=== PATIENT | female | born 1955 | race Caucasian/White ===

== ENCOUNTER → 2016-10-15 | Outpatient (CLI) | payer BC ==
[~2016-10-15] MED LIST: ASPI-781 PO; GLUCOSAMINE; IBUPROFEN; OXYC-481 PO; TRAM50TA2 PO
--- NOTE | 2016-10-15 09:52 | RADRPT ---
PROCEDURE: Right knee radiographs. CLINICAL INDICATION: Right knee pain. Postop. TECHNIQUE: Three views. Weight bearing. Frontal, lateral, and patellar view. COMPARISON: 03/05/2016. FINDINGS: There is no fracture or dislocation. There is diffuse osteopenia. There is a total right knee arthroplasty which appears satisfactory. There is no lytic or blastic lesion. There is a small joint effusion. IMPRESSION: 1. Diffuse osteopenia. 2. Small joint effusion. 3. Postoperative changes with arthroplasty of the right knee. RPTAT: QQ .Pérez Finch MD, MD Date Time Electronically viewed and signed by .Pérez Finch MD, MD on 10/15/2016 09:51 .R/
== END | disposition home or self-care (01) ==
LOC: HKI 08:57
PROVIDERS: ATTEND Orthopaedic Surgery
DX: M17.12 Unilateral primary osteoarthritis, left knee (principal); M25.562 Pain in left knee; Z96.651 Presence of right artificial knee joint
CPT/HCPCS: 73562; G0463

== ENCOUNTER → 2017-01-03 | Outpatient (CLI) | payer BC ==
--- NOTE | 2017-01-03 14:33 | RADRPT ---
PROCEDURE: XR LEFT KNEE. CLINICAL INDICATION: Knee pain. TECHNIQUE: Four views of the left knee are available for review including AP weight bearing, later al, PA 45 [place] weight bearing and merchant views. COMPARISON: None available FINDINGS: There is marked medial joint space narrowing and there are peripheral osteophytes and subcortical sc lerosis and lucency indicative of advanced arthrosis. There may be superimposed central weightbeari ng surface subcortical medial femoral condyle osteonecrosis. No collapse is seen but there is mild flattening which may indicate early collapse. Moderate lateral compartment and patellofemoral arthro sis is seen. As a small joint effusion. No evidence for acute fracture. IMPRESSION: 1. 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 2. Moderate arthrosis of the lateral compartment of patellofemoral joint. RPTAT: XX .Toro Gardner MD, MD Date Time Electronically viewed and signed by .Toro Gardner MD, on 01/03/2017 14:32 .T/
--- NOTE | 2017-01-03 14:36 | RADRPT ---
PROCEDURE: CR BONE LENGTH CLINICAL INDICATION: Leg length discrepancy. TECHNIQUE: An AP frontal x-ray was obtained for the purpose of measuring the lower extremity length s. COMPARISON: None. FINDINGS: Right side: Top of the femoral head to central weightbearing surface of the medial femoral condyle: 41.61 cm Top of the femoral head to central weightbearing surface of the lateral femoral condyle: 41.7 cm Left side: Top of the femoral head to central weightbearing surface of the medial femoral condyle: 41.7 cm Top of the femoral head to central weightbearing surface of the lateral femoral condyle: 41.7 cm IMPRESSION: 1. There is essentially no difference in size of the femora bilaterally. 2. There is a discrepancy between the right and left femora medially of 1 mm with the left longer t vick the left. The measurement is felt to be within the margin of error. 2. There is no discrepancy between the right and left femora laterally. RPTAT: XX .Toro Gardner MD, MD Date Time Electronically viewed and signed by .Toro Gardner MD, on 01/03/2017 14:36 .T/
== END | disposition home or self-care (01) ==
LOC: HKI 09:11
PROVIDERS: ATTEND Orthopaedic Surgery
DX: Z47.1 Aftercare following joint replacement surgery (principal); Z96.651 Presence of right artificial knee joint
CPT/HCPCS: 73564; 77073; G0463

== ENCOUNTER 2017-01-06 07:36 | Inpatient (IN) | payer BC ==
[2017-01-06] VITALS (32 sets, daily range): BP systolic 86–162; BP diastolic 62–76; PULSE 60–94; RESP 11–20; Ht 160 cm; Wt 53.7 kg
[~2017-01-06] VITALS: Ht 160 cm; Wt 53.7 kg
[~2017-01-06 07:36] MED LIST changes: +ACETAMINOPHEN 1000 MG/100 ML IVPB ONE; +BUPIVACAINE LIPOSOME/PF 266 MG/20 ML VIAL INFIL SCH; +CEFAZOLIN 2GM/50 ML (PMX) 50 ML X1 BEFORE INCISION IVPB SCH; +CELECOXIB 400 MG PO X1 DOSE PO SCH; +ETOMIDATE 20 MG INJ ONE; +EXPAREL NOTE (BUPIVICAINE LIPOSOMAL) XX SCH; +LACTATED RINGER'S 1,000 ML IV SCH; +ONDANSETRON 4 MG IV X 1 DOSE IV SCH; +PAIN COCKTAIL-CEFUROXIME IRR SCH; +PREGABALIN 300 MG PO X1 PO SCH; +PROPOFOL 1000 MG INJ ONE; +SOD CHLORIDE 0.9% IV SCH; +SOD CHLORIDE 0.9% IVPB SCH; +TRANEXAMIC ACID IV SCH; +TRANEXAMIC ACID IVPB SCH; +oxyCODONE (CR) 10 MG TAB [oxyCONTIN] X1 DOSE PO SCH; +traMADOL 50 MG TAB X 1 DOSE PO SCH
[2017-01-06] MEDS ORDERED: NEOSTIGMINE 3 MG/3 ML SYRINGE ONE (09:19)
[2017-01-06] MEDS ORDERED: CEFAZOLIN 1 GM INJ ONE (09:19)
[2017-01-06] MEDS ORDERED: PROPOFOL 20 ML ONE (09:19)
[2017-01-06] MEDS ORDERED: DEXAMETHASONE 4 MG/ML 1 ML INJ ONE (09:19)
[2017-01-06] MEDS ORDERED: FENTAnyl 50 MCG/ML VIAL ONE (09:19)
[2017-01-06] MEDS ORDERED: ONDANSETRON 4 MG INJ ONE (09:19)
[2017-01-06] MEDS ORDERED: GLYCOPYRROLATE 0.4 MG INJ ONE (09:19)
[2017-01-06] MEDS ORDERED: MIDAZOLAM 1 MG/ML 2 ML INJ ONE (09:19)
[2017-01-06] MEDS ORDERED: ROCURONIUM 50 MG INJ ONE (09:19)
[2017-01-06] MEDS ORDERED: SUGAMMADEX SODIUM 200 MG/2 ML VIAL IV ONE (09:29)
[2017-01-06] MEDS ORDERED: SODIUM CL BACTERIOSTATIC 30 ML INJ ONE (09:46)
[2017-01-06] MEDS ORDERED: VANCOMYCIN 1 GM INJ ONE (09:46)
[2017-01-06] MEDS ORDERED: POLYMYXIN B 500000 UNIT INJ ONE (09:46)
--- NOTE | 2017-01-06 09:52 | HPN ---
Date/Time of Note Date/Time of Note DATE: 01/06/17 TIME: 09:51 Interval H&P Admission Note Pt. seen H&P reviewed: No system changes No changes from H&P on 12/27/16 by GRIFFIN Smiley MD Jan 06, 2017 09:52
[2017-01-06] MEDS ORDERED: BACITRACIN 50000 UNITS INJ ONE (10:21)
[2017-01-06] MEDS: traMADol 50 MG TAB PO SCH ×2 (12:00→18:00)
[2017-01-06] MEDS ORDERED: ASPIRIN (EC) 325 MG TAB PO ONE (12:30)
[2017-01-06] MEDS ORDERED: HYDROCODONE/APAP (7.5/325) TAB PO PRN (12:30)
[2017-01-06] MEDS ORDERED: NACL 0.9% 3 ML SYG IV SCH (12:30)
[2017-01-06] MEDS ORDERED: HYDROmorphONE 1 MG/ML SYG IV PRN (12:30)
[2017-01-06] MEDS ORDERED: NA PHOSPHATE/BIPHOS 133 ML ENEMA PR PRN (12:30)
[2017-01-06] MEDS ORDERED: DIPHENHYDRAMINE 25 MG CAP PO PRN (12:30)
[2017-01-06] MEDS ORDERED: MAGNESIUM HYDROXIDE 30ML CUP PO PRN (12:30)
[2017-01-06] MEDS ORDERED: BISACODYL 10 MG SUPP PR PRN (12:30)
--- NOTE | 2017-01-06 12:35 | OPR ---
Date/Time of Note Date/Time of Note DATE: 01/06/17 TIME: 12:32 Operative Report Procedure Description DATE: 01/06/2017 PREOPERATIVE DIAGNOSIS: Left knee osteoarthritis POSTOPERATIVE DIAGNOSIS: Left knee osteoarthritis OPERATION PERFORMED: Left total knee arthroplasty. SURGEON: Griffin Mccoy MD CARD GRADER: Jonathan Lombardi PA-C COMPONENTS USED: DePuy Attune size 3 narrow femoral component, size 2 tibial baseplate, 6 mm polyethylene insert, 32 patellar button ANESTHESIA: Spinal plus general endotracheal intubation, plus periarticular injection ANESTHESIOLOGIST: Bhaskar Bryant M.D. TOURNIQUET TIME: 49 minutes. ESTIMATED BLOOD LOSS: 50 cc INTRAVENOUS FLUIDS: 1,800 cc SPECIMENS: Bone and soft tissue. DRAINS: Hemovac x1. COMPLICATIONS: None. DISPOSITION: The patient tolerated the procedure well and was taken to the recovery room in stable condition. INDICATIONS: The patient is a 61-year-old woman who has had progressively worsening pain in the left knee with radiographic evidence of severe osteoarthritis. She has tried a multitude of nonsurgical means of treatment to address her pain including activity modifications, pain medications, intra- articular injections, and ambulatory assist devices. Despite these measures she has had worsening pain and I feel she will benefit from a total knee arthroplasty. The risks, benefits, and alternatives of the procedure were explained in detail to the patient. I explained the risks of the surgery to include but not be limited to, bleeding and possible need for blood transfusion; infection; pain; stiffness; neurovascular injury with possible numbness, weakness, and/or paralysis anywhere from the knee down to the toes; fracture; instability; dislocation; wear and/or loosening of the prosthesis and possible need for future revision; blood clots; pulmonary embolism; and anesthetic complications such as heart attack, stroke, GI bleed, pneumonia, and/or . Ample time was allowed for the patient to ask questions, all of which were addressed and answered. The patient understood the risks involved and wished to proceed. Informed consent was signed prior to the procedure. PROCEDURE: The patient's left knee was initialed with a marking pen in the preoperative area to identify the correct operative site. The patient was brought to the operating room and transferred from the [facility] to the operating table where a spinal anesthetic was administered. The patient was then anesthetized and intubated. A Armstrong catheter was placed. A timeout was performed to confirm that the left leg was the correct operative site. The patient was given 2 g of Ancef within one hour prior to the procedure. A tourniquet was placed on the operative proximal thigh. The operative knee and lower extremity were prepped and draped in the usual sterile fashion. The operative lower extremity was elevated and exsanguinated with an Esmarch tourniquet. The proximal thigh tourniquet was inflated to 300 mmHg. The knee was flexed. A midline incision was made and carried down through the subcutaneous tissue and fat with sharp dissection. Limited medial and lateral flaps were raised. A medium parapatellar approach was performed. Synovial fluid was normal in color and consistency. The patella was everted and the knee flexed. There were severe tricompartmental osteoarthritic changes noted. A medial release was performed at the joint line to the midcoronal plane. The ACL and PCL and remnants of the menisci were excised. The stepped drill was used to open up the femoral canal which was irrigated and sucked dry. The intramedullary guide justin was passed up the femur, and the distal cutting block was pinned into place for a 6 degree valgus cut, taking 10 mm of bone off distally. The oscillating saw was used to make the cut. The tibia was subluxed anteriorly. The tibial cutoff jig was placed over the center of the talus distally and over the junction of the medial and middle third of the tibial tubercle proximally. The guide was pinned into place and the oscillating saw was used to make the cut. The tibia was sized. The extension gap was checked and accommodated a 6 mm spacer block with the knee in full extension. There was no varus or valgus instability. At this point, the femur was sized with the posterior referencing guide. Two holes were drilled in 3 degrees of external rotation. The two holes were in line with the transepicondylar axis, perpendicular to Vinay's line, and in line with the tibial cutoff jig brought up with the knee flexed 90 degrees and tensed with 2 lamina spreaders, suggesting the femoral rotation was correct. The four-in-one cutting block was pinned into place. The anterior and posterior cuts and chamfer cuts were made with the oscillating saw. The flexion gap was checked and accommodated the 6 mm spacer block at 90 degrees. There was no varus or valgus instability, suggesting the flexion and extension gaps were now equal. The central box was cut out on the femur. The tibia was drilled and punched in proper rotation. Trial components were placed into position with a trial insert. The patella was cut down to 13 mm and sized. Three holes were drilled and the trial button placed in position. With all the trials now in place, the knee was taken through range of motion and came to full extension as evidenced by the fact that with the foot on my abdomen and axial loading, there was no tendency for the knee to flex. The knee was able to be flexed to 125 degrees with good patellar tracking with no lateral tilt or subluxation. At this point, I was satisfied with the overall range of motion, stability, and patellar tracking. The trials were removed. The real components were opened. Two bags of cement were mixed, one with and one without premixed antibiotic. The knee was irrigated with antibiotic saline and sucked dry. Once the cement was in a doughy stage, the real components were cemented into place. The knee was held in full extension, and the patellar component was held with a patellar clamp. All excess cement was removed with curettes. As the cement was hardening, the synovial/capsular layer was infiltrated with a mixture of 150 mg of 0.5% Bupivacaine, 8 mg of Duramorph, 300 mcg of epinephrine, 30 mg of Toradol, 100 mcg of clonidine, 750 mg of cefuroxime and 86 mL of normal saline, followed by an injection of 266 mg of liposomal Bupivacaine. A Hemovac drain was placed in the deep portion of the wound and brought out the anterolateral thigh. Once the cement was completely hardened, the trial liner was removed, and the real insert was opened. The tourniquet was let down, and there was good hemostasis. The knee was then irrigated with a mixture of betadine/saline and then antibiotic saline with pulsatile lavage. The real insert was impacted into the tibia and reduced onto to the femur. The arthrotomy was closed with a few interrupted #1 Ethibond in a figure-of- eight fashion, and then closed in a watertight fashion with a running #2 Stratafix suture. Knee flexion was checked against gravity and came to 125 degrees. The subcutaneous layer was irrigated and closed with 2-0 Statafix, and then 3-0 Vicryl and then ryan on the skin. The wound was covered with an occlusive dressing, and secured with cast padding and a bias dressing. The drain was secured with 3-0 nylon. The sponge and needle counts were correct at the end of the case. The patient was then awakened, extubated, and taken to the recovery room in stable condition. GRIFFIN MCCOY MD Jan 06, 2017 12:35
--- NOTE | 2017-01-06 13:04 | PN ---
Date/Time of Note Date/Time of Note DATE: 01/06/17 TIME: 13:03 Assessment/Plan Lines/Catheters IV Catheter Type (from Nrsg): Peripheral IV Assessment/Plan Assessment/Plan Stable in PACU, s/p left TKA -continue Ancef -pain meds as needed -ASA/SCDs -OOB with PT -monitor drain -check AM labs -d/c pizano in AM XR of the left knee is pending at this time Subjective 24 Hr Interval Summary Stable in PACU. Denies pain. Moving all extremities. Exam/Review of Systems Vital Signs Vitals Vital Signs Date Time Temp Pulse Resp B/P Pulse Ox O2 Delivery O2 Flow Rate FiO2 01/06/17 12:45 98.1 01/06/17 12:32 81 16 140/63 100 Mask 8.0 Exam Free Text/Dictation Hemovac: minimal Dressing dry Incision clean, dry, and intact without redness or drainage Thigh soft 5/5 Quadriceps, Tibialis Anterior, EHL, Gastroc, Soleus, Peroneals Normal sensation Palpable DT/PT, CR <2 sec No distal edema RODNEY ARREOLA PA-C Jan 06, 2017 13:04
[2017-01-06 13:09] LABS: HEMATOCRIT 38.8 % (37.0-47.0); HEMOGLOBIN 12.7 g/dl (12.0-16.0)
--- NOTE | 2017-01-06 13:09 | PDOCDIS ---
Discharge Instructions DIAGNOSIS Discharge Diagnosis s/p left TKA CONDITION Patient Condition: Good HOME CARE INSTRUCTIONS: Diet Instructions: Regular ACTIVITY: Activity Restrictions: Slowly Increase Activity Rest between Activity Avoid heavy lifting Do not operate Machinery Do not operate Power Tool Avoid Heavy Housework Keep Limb Elevated Weight Bearing Bathing Restrictions: Shower FOLLOW UP/APPOINTMENTS Follow-up Plan follow up in the office on 01/17/17 RODNEY ARREOLA PA-C Jan 06, 2017 13:09
[2017-01-06] MEDS ORDERED: PANT40TA4 PO (13:10)
[2017-01-06] MEDS ORDERED: HYDR-3605 PO (13:10)
[2017-01-06] MEDS ORDERED: PREG50CA PO (13:10)
[2017-01-06] MEDS ORDERED: TRAM50TA2 PO (13:10)
[2017-01-06] MEDS ORDERED: ASPI325T32 PO (13:10)
[2017-01-06] MEDS: CEFAZOLIN 2 GM/50 ML (PMX) 50 ML IVPB SCH ×2 (13:16→21:49)
--- NOTE | 2017-01-06 13:36 | RADRPT ---
PROCEDURE: CR Left Knee CLINICAL INDICATION: Postop TECHNIQUE: An AP and lateral view were submitted. COMPARISON: 01/03/2017 FINDINGS: Osseous Structures: Since the previous study, the patient has undergone a total left knee replacemen t and the components appear well seated. The osseous elements otherwise appear intact. Joint Spaces: A moderate joint effusion is evident and a drain has been placed. Soft tissues: Superficial ryan have been placed ventrally and there is a small amount of postope rative subcutaneous air. IMPRESSION: 1. Interval total left knee replacement of the components well-seated. 2. Moderate joint effusion with a drain in place. 3. Superficial ryan been placed ventrally. Physician Maxim Date Time Electronically viewed and signed by Gamaliel Knox Physician on 01/06/2017 13:36 /
[2017-01-06 13:49] LABS: CALCIUM 8.4 mg/dl (8.4-10.2); CREATININE 0.59 mg/dl (0.44-1.00); POTASSIUM 4.2 mmol/L (3.5-5.1)
[2017-01-06] MEDS ORDERED: TRANEXAMIC ACID IVPB ONE ×2 (15:30→18:30)
[2017-01-06] MEDS ORDERED: SOD CHLORIDE 0.9% IVPB ONE ×2 (15:30→18:30)
[2017-01-06] MEDS: ONDANSETRON 4 MG INJ IV PRN ×2 (15:47→21:45)
[2017-01-06] MEDS: PANTOPRAZOLE (EC) 40 MG TAB PO SCH (18:00)
[2017-01-06] MEDS: LACTATED RINGER'S 1,000 ML IV SCH ×2 (18:29→21:45)
--- NOTE | 2017-01-06 18:37 | CONS ---
Date/Time of Note Date/Time of Note DATE: 01/06/17 TIME: 18:33 Assessment/Plan Assessment/Plan Chief Complaint/Hosp Course 61 yo female with OA who is s/p TKA - Pain control PRN - Currently nauseous, have instructed nurse to give zofran - DVT ppx - Early ambulation when cleared by orthopedics Problems: Consultation Date/Type/Reason Admit Date/Time Jan 06, 2017 at 07:36 Hx of Present Illness 61 yo femlae with OA of knees who has been admitted following TKA Patient currently is not in any pain followign surgery but does complain of mild nausea Otherwise feels well Past Surgical History Past Surgical Hx: no surgical history Social History Alcohol Use: none Smoking Status: Never smoker Drug Use: none Exam/Review of Systems Vital Signs Vitals Vital Signs Date Time Temp Pulse Resp B/P Pulse Ox O2 Delivery O2 Flow Rate FiO2 01/06/17 16:56 94 14 139/62 96 Room Air 01/06/17 15:16 2.0 01/06/17 12:45 98.1 Exam Well appearing in NAD, AOx3 Pleasant RRR Clear lungs, nonlabored LLE in surgical cast Results Result Diagram: 01/06/17 1301 01/06/17 1301 Results 24 hrs Laboratory Tests Test 01/06/17 13:01 Hemoglobin 12.7 Hematocrit 38.8 Sodium Level 143 Potassium Level 4.2 Chloride Level 107 Carbon Dioxide Level 25 Anion Gap 15 Blood Urea Nitrogen 11 Creatinine 0.59 Glucose Level 149 Calcium Level 8.4 Medications Medications Current Medications Miscellaneous Information 1 ea 1 ea NOTE XX ; Start 01/06/17 at 07:00; Stop at 07:01 Lactated Ringer's (Lr) 1,000 ml @ 125 mls/hr Q8H IV Last administered on t 18:29; Admin Dose 125 MLS/HR; Start 01/06/17 at 12:29 Tramadol HCl (Ultram) 50 mg Q6 PO ; Start 01/06/17 at 12:00; Stop 01/09/17 at 11 :59 Hydromorphone HCl 1 mg 1 mg Q3H PRN IV PAIN LEVEL 8-10; Start 01/06/17 at 12:30 Cefazolin Sodium/ Dextrose (Ancef 2 Gm/50 ml (Pmx)) 50 ml @ 100 mls/hr Q8H IVPB Last administered on 01/06/17 13:16; Admin Dose 100 MLS/HR; Start at 13:30; Stop 01/07/17 at 05:59 Ondansetron HCl (Zofran Inj) 4 mg Q6H PRN IV NAUSEA AND/OR VOMITING Last administered on 01/06/17 15:47; Admin Dose 4 MG; Start 01/06/17 at 12:30 Bisacodyl (Dulcolax Supp) 10 mg Q12H PRN [place] CONSTIPATION; Start 01/06/17 at 12: 30 Magnesium Hydroxide (Milk Of Mag) 30 ml BID PRN PO CONSTIPATION; Start at 12:30 Sodium Biphosphate/ Sodium Phosphate (Fleet Enema) 133 ml DAILY PRN [place] CONSTIPATION; Start 01/06/17 at 12:30 Docusate Sodium (Colace) 100 mg BID PO ; Start 01/06/17 at 21:00 Diphenhydramine HCl (Benadryl) 25 mg Q6H PRN PO PRURITUS; Start 01/06/17 at 12: 30 Acetaminophen/ Hydrocodone Bitart ([place] (7.5-325)) 1 tab Q4H PRN PO PAIN LEVEL 1-3; Start 01/06/17 at 12:30 Acetaminophen/ Hydrocodone Bitart ([place] (7.5-325)) 2 tab Q4H PRN PO PAIN LEVEL 4-7; Start 01/06/17 at 12:30 Aspirin (Ecotrin) 325 mg BID PO ; Start 01/07/17 at 09:00 Pantoprazole (Protonix Tab) 40 mg BID@,18 PO ; Start 01/06/17 at 18:00 Pregabalin (Lyrica) 50 mg BID PO ; Start 01/06/17 at 21:00 NEIDA GARCIA MD Jan 06, 2017 18:36
[2017-01-06] MEDS: DOCUSATE SODIUM 100 MG CAP PO SCH (21:00)
[2017-01-06] MEDS: PREGABALIN 50 MG CAP PO SCH (21:00)
[2017-01-06] MEDS ORDERED: METOCLOPRAMIDE 10 MG INJ IV PRN (22:30)
[2017-01-07] VITALS: BP 93/55; RESP 83
[2017-01-07] MEDS: traMADol 50 MG TAB PO SCH ×5 (00:30→23:35)
[2017-01-07 02:00] VITALS: BP 112/56; RESP 20
[2017-01-07] MEDS: LACTATED RINGER'S 1,000 ML IV SCH ×2 (03:29→12:29)
[2017-01-07] MEDS: ONDANSETRON 4 MG INJ IV PRN (05:01)
[2017-01-07] MEDS: CEFAZOLIN 2 GM/50 ML (PMX) 50 ML IVPB SCH (05:01)
[2017-01-07] MEDS: PANTOPRAZOLE (EC) 40 MG TAB PO SCH ×2 (05:36→17:53)
[2017-01-07 06:00] LABS: HEMATOCRIT 34.4 % (37.0-47.0); HEMOGLOBIN 10.9 g/dl (12.0-16.0)
[2017-01-07 06:22] LABS: CALCIUM 8.4 mg/dl (8.4-10.2); CREATININE 0.57 mg/dl (0.44-1.00); POTASSIUM 4.5 mmol/L (3.5-5.1)
[2017-01-07 08:12] VITALS: BP 114/56; RESP 15
[2017-01-07] MEDS: ASPIRIN (EC) 325 MG TAB PO SCH ×2 (08:51→20:12)
[2017-01-07] MEDS: DOCUSATE SODIUM 100 MG CAP PO SCH ×2 (08:51→20:12)
[2017-01-07] MEDS: PREGABALIN 50 MG CAP PO SCH ×2 (08:54→20:12)
--- NOTE | 2017-01-07 10:10 | PN ---
Date/Time of Note Date/Time of Note DATE: 01/07/17 TIME: 10:09 Assessment/Plan Lines/Catheters IV Catheter Type (from Nrsg): Saline Lock Armstrong in Place (from Nrsg): Yes Assessment/Plan Assessment/Plan Stable POD #1, s/p left TKA -d/c Ancef -pain meds as needed -ASA/SCDs -OOB with PT -drain removed -check AM labs -d/c planning. Would like to go home upon discharge Subjective 24 Hr Interval Summary No acute overnight events. Denies significant pain. Did not start PT yesterday. VSS, afebrile. Would like to go home yesterday. Exam/Review of Systems Vital Signs Vitals Vital Signs Date Time Temp Pulse Resp B/P Pulse Ox O2 Delivery O2 Flow Rate FiO2 01/07/17 08:12 97.6 59 15 114/56 99 01/06/17 17:30 Venturi Mask 2.0 Intake and Output 01/06/17 01/06/17 01/07/17 14:59 22:59 06:59 Intake Total 3000 ml 1250 ml 2120 ml Output Total 1440 ml 1530 ml 2000 ml Balance 1560 ml -280 ml 120 ml Exam Free Text/Dictation Dressing dry Incision clean, dry, and intact without redness or drainage Thigh soft 5/5 Quadriceps, Tibialis Anterior, EHL, Gastroc, Soleus, Peroneals Normal sensation Palpable DT/PT, CR <2 sec No distal edema Results Result Diagram: 01/07/17 0449 01/07/17 0449 RODNEY ARREOLA PA-C Jan 07, 2017 10:10
[2017-01-07 10:52] LABS: ADD UMIC NO; UR ASCORBIC ACID NEGATIVE (NEGATIVE); UR BILIRUBIN (Dip) NEGATIVE (NEGATIVE); UR BLOOD (Dip) NEGATIVE (NEGATIVE); UR CLARITY CLEAR (CLEAR); UR COLOR COLORLESS (YELLOW); UR GLUCOSE (Dip) NEGATIVE (NEGATIVE); UR KETONES (Dip) NEGATIVE (NEGATIVE); UR LEUKOCYTE ESTERASE (Dip) NEGATIVE Leu/ul (NEGATIVE); UR NITRITE (Dip) NEGATIVE (NEGATIVE); UR SPECIFIC GRAVITY (Dip) 1.005 (1.003-1.030); UR TOTAL PROTEIN (Dip) NEGATIVE (NEGATIVE); UR UROBILINOGEN (Dip) NEGATIVE (NEGATIVE)
[2017-01-07] MEDS: HYDROCODONE/APAP (7.5/325) TAB PO PRN (11:19)
[2017-01-07 14:00] VITALS: BP 115/57; RESP 15
--- NOTE | 2017-01-07 14:42 | PN ---
Date/Time of Note Date/Time of Note DATE: 01/07/17 TIME: 14:33 Assessment/Plan VTE Prophylaxis VTE Prophylaxis Intervention: ambulation, other (Aspirin) Lines/Catheters IV Catheter Type (from Nrsg): Saline Lock Urinary Cath still in place: No Assessment/Plan Assessment/Plan 61 yo female with: 1. Status post left TKA, POD#1, discharge planned for Tuesday per orthopedic surgery so far. Continue pain control, for now patient reports good pain control Tolerating p.o. well Has ambulated at least twice today already, good recovery. DVT prophylaxis per orthopedic surgery with Aspirin 325 mg p.o. twice daily Prophylaxis: Aspirin for DVT prophylaxis, Protonix for GI prophylaxis Disposition: Discharge planning home on Tuesday with home health PT, patient already has a walker and a cane at home. Subjective 24 Hr Interval Summary Free Text/Dictation Patient doing well postoperative day #1, she has ambulated at least twice already with physical therapy, she has minimal pain requirement, per surgical notes discharge planning for Tuesday home with home health PT Exam/Review of Systems Vital Signs Vitals Vital Signs Date Time Temp Pulse Resp B/P Pulse Ox O2 Delivery O2 Flow Rate FiO2 01/07/17 08:12 97.6 59 15 114/56 99 01/06/17 17:30 Venturi Mask 2.0 Intake and Output 01/06/17 01/06/17 01/07/17 15:00 23:00 07:00 Intake Total 3000 ml 1250 ml 2120 ml Output Total 1440 ml 1530 ml 2000 ml Balance 1560 ml -280 ml 120 ml Exam Constitutional: alert, oriented, well developed Respiratory: clear to auscultation, normal air movement Cardiovascular: nl pulses, regular rate and rhythm Gastrointestinal: non-tender, soft Musculoskeletal: nl extremities to inspection Extremities: normal pulses, other (No edema, clubbing or cyanosis) Neurological: FERMENTATION SCIENTIST II-XII intact, nl mental status, nl speech, other (Status post left TKA) Results Result Diagram: 01/07/17 0449 01/07/17 0449 Results 24 hrs Laboratory Tests Test 01/07/17 04:49 01/07/17 06:00 Hemoglobin 10.9 L Hematocrit 34.4 L Sodium Level 139 Potassium Level 4.5 Chloride Level 103 Carbon Dioxide Level 25 Anion Gap 16 Blood Urea Nitrogen 9 Creatinine 0.57 Glucose Level 124 Calcium Level 8.4 Urine Color COLORLESS Urine Clarity CLEAR Urine pH 7.0 Urine Specific [place] 1.005 Urine Ketones NEGATIVE Urine Nitrite NEGATIVE Urine Bilirubin NEGATIVE Urine Urobilinogen NEGATIVE Urine Leukocyte Esterase NEGATIVE Urine Hemoglobin NEGATIVE Urine Glucose NEGATIVE Urine Total Protein NEGATIVE Medications Medications Current Medications Miscellaneous Information 1 ea 1 ea NOTE XX ; Start 01/06/17 at 07:00; Stop at 07:01 Lactated Ringer's (Lr) 1,000 ml @ 125 mls/hr Q8H IV Last administered on 03:29; Admin Dose 125 MLS/HR; Start 01/06/17 at 12:29 Tramadol HCl (Ultram) 50 mg Q6 PO Last administered on 01/07/17 05:36; Admin Dose 50 MG; Start 01/06/17 at 12:00; Stop 01/09/17 at 11:59 Hydromorphone HCl (Dilaudid) 1 mg Q3H PRN IV PAIN LEVEL 8-10; Start 01/06/17 at 12:30 Ondansetron HCl (Zofran Inj) 4 mg Q6H PRN IV NAUSEA AND/OR VOMITING Last administered on 01/07/17 05:01; Admin Dose 4 MG; Start 01/06/17 at 12:30 Bisacodyl (Dulcolax Supp) 10 mg Q12H PRN [place] CONSTIPATION; Start 01/06/17 at 12: 30 Magnesium Hydroxide (Milk Of Mag) 30 ml BID PRN PO CONSTIPATION; Start at 12:30 Sodium Biphosphate/ Sodium Phosphate (Fleet Enema) 133 ml DAILY PRN [place] CONSTIPATION; Start 01/06/17 at 12:30 Docusate Sodium (Colace) 100 mg BID PO Last administered on 01/07/17 08:51; Admin Dose 100 MG; Start 01/06/17 at 21:00 Diphenhydramine HCl (Benadryl) 25 mg Q6H PRN PO PRURITUS; Start 01/06/17 at 12: 30 Acetaminophen/ Hydrocodone Bitart ([place] (7.5-325)) 1 tab Q4H PRN PO PAIN LEVEL 1-3 Last administered on 01/07/17 11:19; Admin Dose 1 TAB; Start at 12:30 Acetaminophen/ Hydrocodone Bitart ([place] (7.5-325)) 2 tab Q4H PRN PO PAIN LEVEL 4-7; Start 01/06/17 at 12:30 Aspirin (Ecotrin) 325 mg BID PO Last administered on 01/07/17 08:51; Admin Dose 325 MG; Start 01/07/17 at 09:00 Pantoprazole (Protonix Tab) 40 mg BID@06,18 PO Last administered on 01/07/17 05:36; Admin Dose 40 MG; Start 01/06/17 at 18:00 Pregabalin (Lyrica) 50 mg BID PO ; Start 01/06/17 at 21:00 Metoclopramide HCl (Reglan) 10 mg Q6H PRN IV NAUSEA Last administered on 22:27; Admin Dose 10 MG; Start 01/06/17 at 22:30 MADELINE DELCID Jan 07, 2017 14:42
[2017-01-07 17:53] VITALS: BP 126/61; PULSE 68; RESP 20
[2017-01-07 20:00] VITALS: BP 121/61; RESP 18
[2017-01-08 02:00] VITALS: BP 132/60; RESP 18
[2017-01-08 05:01] LABS: HEMOGLOBIN 10.6 g/dl (12.0-16.0)
[2017-01-08] MEDS: PANTOPRAZOLE (EC) 40 MG TAB PO SCH ×2 (05:09→17:55)
[2017-01-08] MEDS: traMADol 50 MG TAB PO SCH ×3 (05:09→17:55)
[2017-01-08 05:18] LABS: CALCIUM 8.5 mg/dl (8.4-10.2); CREATININE 0.6 mg/dl (0.44-1.00); POTASSIUM 4.3 mmol/L (3.5-5.1)
[2017-01-08 08:01] VITALS: BP 142/67; RESP 15
[2017-01-08] MEDS: DOCUSATE SODIUM 100 MG CAP PO SCH ×2 (08:46→20:40)
[2017-01-08] MEDS: ASPIRIN (EC) 325 MG TAB PO SCH ×2 (08:46→20:39)
[2017-01-08] MEDS: PREGABALIN 50 MG CAP PO SCH ×2 (08:47→20:39)
--- NOTE | 2017-01-08 10:29 | PN ---
Date/Time of Note Date/Time of Note DATE: 01/08/17 TIME: 10:25 Assessment/Plan VTE Prophylaxis VTE Prophylaxis Intervention: SCD's, other (Aspirin) Lines/Catheters IV Catheter Type (from Nrsg): Saline Lock Urinary Cath still in place: No Assessment/Plan Assessment/Plan 61 yo female with: 1. Status post left TKA, POD#2, discharge planned for Tuesday per orthopedic surgery so far. Patient doing well, ongoing physical therapy Continue pain control, for now patient reports good pain control Tolerating p.o. well DVT prophylaxis per orthopedic surgery with Aspirin 325 mg p.o. twice daily Discharge planning for tomorrow with home health PT. Prophylaxis: Aspirin for DVT prophylaxis, Protonix for GI prophylaxis Disposition: Discharge planning home tomorrow with home health PT, patient already has a walker and a cane at home. Subjective 24 Hr Interval Summary Free Text/Dictation Patient doing well, she is ambulating with PT, she does have pain after physical therapy and exercises to the left knee but relieved with the pain medication. Tolerating p.o. Her orthopedic surgery, discharge planning for tomorrow with home health PT Exam/Review of Systems Vital Signs Vitals Vital Signs Date Time Temp Pulse Resp B/P Pulse Ox O2 Delivery O2 Flow Rate FiO2 01/08/17 08:01 97.8 67 15 142/67 100 01/06/17 17:30 Venturi Mask 2.0 Intake and Output 01/07/17 01/07/17 01/08/17 15:00 23:00 07:00 Intake Total 750 ml 1100 ml 550 ml Balance 750 ml 1100 ml 550 ml Exam Constitutional: alert, oriented, well developed Respiratory: clear to auscultation, normal air movement Cardiovascular: nl pulses, regular rate and rhythm Gastrointestinal: non-tender, soft Musculoskeletal: other (Status post left TKA) Extremities: normal pulses, other (No edema, clubbing or cyanosis) 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, nl mental status, nl speech, nl strength, other (Status post left TKA) Results Result Diagram: 01/08/178 01/08/17427 Results 24 hrs Laboratory Tests Test 01/08/17 04:28 Hemoglobin 10.6 L Hematocrit 33.0 L Sodium Level 139 Potassium Level 4.3 Chloride Level 100 Carbon Dioxide Level 30 Anion Gap 13 Blood Urea Nitrogen 9 Creatinine 0.60 Glucose Level 85 Calcium Level 8.5 Medications Medications Current Medications Miscellaneous Information 1 ea NOTE XX ; Start 01/06/17 at 07:00; Stop 01/09/17 at 07:01 Tramadol HCl (Ultram) 50 mg Q6 PO Last administered on 01/08/17 05:09; Admin Dose 50 MG; Start 01/06/17 at 12:00; Stop 01/09/17 at 11:59 Hydromorphone HCl (Dilaudid) 1 mg Q3H PRN IV PAIN LEVEL 8-10; Start 01/06/17 at 12:30 Ondansetron HCl (Zofran Inj) 4 mg Q6H PRN IV NAUSEA AND/OR VOMITING Last administered on 01/07/17 05:01; Admin Dose 4 MG; Start 01/06/17 at 12:30 Bisacodyl (Dulcolax Supp) 10 mg Q12H PRN [place] CONSTIPATION; Start 01/06/17 at 12: 30 Magnesium Hydroxide (Milk Of Mag) 30 ml BID PRN PO CONSTIPATION; Start at 12:30 Sodium Biphosphate/ Sodium Phosphate (Fleet Enema) 133 ml DAILY PRN [place] CONSTIPATION; Start 01/06/17 at 12:30 Docusate Sodium (Colace) 100 mg BID PO Last administered on 01/08/17 08:46; Admin Dose 100 MG; Start 01/06/17 at 21:00 Diphenhydramine HCl (Benadryl) 25 mg Q6H PRN PO PRURITUS; Start 01/06/17 at 12: 30 Acetaminophen/ Hydrocodone Bitart ([place] (7.5-325)) 1 tab Q4H PRN PO PAIN LEVEL 1-3 Last administered on 01/07/17 11:19; Admin Dose 1 TAB; Start at 12:30 Acetaminophen/ Hydrocodone Bitart ([place] (7.5-325)) 2 tab Q4H PRN PO PAIN LEVEL 4-7; Start 01/06/17 at 12:30 Aspirin (Ecotrin) 325 mg BID PO Last administered on 01/08/17 08:46; Admin Dose 325 MG; Start 01/07/17 at 09:00 Pantoprazole (Protonix Tab) 40 mg BID@06,18 PO Last administered on 01/08/17 05:09; Admin Dose 40 MG; Start 01/06/17 at 18:00 Pregabalin (Lyrica) 50 mg BID PO Last administered on 01/07/17 20:12; Admin Dose 50 MG; Start 01/06/17 at 21:00 Metoclopramide HCl (Reglan) 10 mg Q6H PRN IV NAUSEA Last administered on 22:27; Admin Dose 10 MG; Start 01/06/17 at 22:30 MADELINE DELCID Jan 08, 2017 10:29
[2017-01-08] MEDS: HYDROCODONE/APAP (7.5/325) TAB PO PRN ×2 (10:40→15:05)
--- NOTE | 2017-01-08 11:19 | PN ---
Date/Time of Note Date/Time of Note DATE: 01/08/17 TIME: 11:18 Assessment/Plan Lines/Catheters IV Catheter Type (from Nrsg): Saline Lock Armstrong in Place (from Nrsg): No Assessment/Plan Assessment/Plan POD # 2. Stable. -Increase OOB with PT -Pain meds -ASA/SCDs -D/C to home tomorrow Subjective 24 Hr Interval Summary Some pain. [place] helping. Exam/Review of Systems Vital Signs Vitals Vital Signs Date Time Temp Pulse Resp B/P Pulse Ox O2 Delivery O2 Flow Rate FiO2 01/08/17 08:01 97.8 67 15 142/67 100 01/06/17 17:30 Venturi Mask 2.0 Intake and Output 01/07/17 01/07/17 01/08/17 15:00 23:00 07:00 Intake Total 750 ml 1100 ml 550 ml Balance 750 ml 1100 ml 550 ml Exam Free Text/Dictation Dressing dry Incision clean, dry, and intact without redness or drainage 5/5 Tibialis Anterior, EHL, Gastroc Soleus, Peroneals Normal sensation Palpable DP/PT, CR < 2 Sec No distal edema Results Result Diagram: 01/08/17 0428 01/08/17 0428 GRIFFIN MCCOY MD Jan 08, 2017 11:19
[2017-01-08 14:00] VITALS: BP 137/63; RESP 15
[2017-01-08 21:22] VITALS: BP 118/69; RESP 18
[2017-01-09] MEDS: traMADol 50 MG TAB PO SCH ×2 (00:40→05:55)
[2017-01-09 04:36] VITALS: BP 131/58; RESP 19
[2017-01-09 05:01] LABS: HEMATOCRIT 36.4 % (37.0-47.0); HEMOGLOBIN 11.6 g/dl (12.0-16.0)
[2017-01-09 05:15] LABS: CALCIUM 8.4 mg/dl (8.4-10.2); CREATININE 0.67 mg/dl (0.44-1.00); POTASSIUM 4.3 mmol/L (3.5-5.1)
[2017-01-09] MEDS: PANTOPRAZOLE (EC) 40 MG TAB PO SCH (05:55)
[2017-01-09 07:48] VITALS: BP 141/65; RESP 18
[2017-01-09] MEDS: PREGABALIN 50 MG CAP PO SCH (09:19)
[2017-01-09] MEDS: ASPIRIN (EC) 325 MG TAB PO SCH (09:19)
[2017-01-09] MEDS: DOCUSATE SODIUM 100 MG CAP PO SCH (09:19)
[2017-01-09] MEDS: ONDANSETRON 4 MG INJ IV PRN ×2 (09:22→14:58)
--- NOTE | 2017-01-09 11:34 | PN ---
Date/Time of Note Date/Time of Note DATE: 01/09/17 TIME: 11:28 Assessment/Plan VTE Prophylaxis VTE Prophylaxis Intervention: SCD's, other (Aspirin) Lines/Catheters IV Catheter Type (from Nrsg): Saline Lock Urinary Cath still in place: No Assessment/Plan Assessment/Plan 61 yo female with: 1. Status post left TKA, POD#3, discharge planned for today per orthopedic surgery so far. Patient doing well, except for episodes of nausea, patient reports that after her right TKA approximately a year ago, she had nausea for a month... Likely related to pain medications. Continue physical therapy Continue pain control, for now patient reports good pain control Tolerating p.o. well DVT prophylaxis per orthopedic surgery with Aspirin 325 mg p.o. twice daily Discharge planning today with home health PT. Prophylaxis: Aspirin for DVT prophylaxis, Protonix for GI prophylaxis Disposition: Discharge planning home today with home health PT, patient already has a walker and a cane at home. We will also give some Zofran p.o. as needed nausea for home. Subjective 24 Hr Interval Summary Free Text/Dictation Patient reports that postoperatively when they did her last knee she had a nauseous for 1 month, she is having nausea today, relieved with Zofran. She will be discharged home with Zofran p.o. as needed. Orthopedic surgery to see patient prior to discharge. Otherwise patient remained stable, mild hyponatremia this morning likely just related to fluids. Patient does not need to be kept inpatient for it Exam/Review of Systems Vital Signs Vitals Vital Signs Date Time Temp Pulse Resp B/P Pulse Ox O2 Delivery O2 Flow Rate FiO2 01/09/17 07:48 98.7 76 18 141/65 91 01/06/17 17:30 Venturi Mask 2.0 Intake and Output 01/08/17 01/08/17 01/09/17 15:00 23:00 07:00 Intake Total 800 ml 850 ml Output Total 800 ml Balance 800 ml 50 ml Exam Constitutional: alert, oriented, well developed Respiratory: clear to auscultation, normal air movement Cardiovascular: nl pulses, regular rate and rhythm Gastrointestinal: non-tender, soft Musculoskeletal: nl extremities to inspection Extremities: normal pulses, other (Status post left TKA) 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, nl mental status, nl speech, nl strength, other (Status post left TKA) Results Result Diagram: 01/09/17 0431 01/09/17 0431 Results 24 hrs Laboratory Tests Test 01/09/17 04:31 Hemoglobin 11.6 L Hematocrit 36.4 L Sodium Level 130 L Potassium Level 4.3 Chloride Level 95 L Carbon Dioxide Level 31 Anion Gap 8 Blood Urea Nitrogen 7 Creatinine 0.67 Glucose Level 108 Calcium Level 8.4 Medications Medications Current Medications Tramadol HCl (Ultram) 50 mg Q6 PO Last administered on 01/09/17 05:55; Admin Dose 50 MG; Start 01/06/17 at 12:00; Stop 01/09/17 at 11:59 Hydromorphone HCl (Dilaudid) 1 mg Q3H PRN IV PAIN LEVEL 8-10; Start 01/06/17 at 12:30 Ondansetron HCl (Zofran Inj) 4 mg Q6H PRN IV NAUSEA AND/OR VOMITING Last administered on 01/09/17 09:22; Admin Dose 4 MG; Start 01/06/17 at 12:30 Bisacodyl (Dulcolax Supp) 10 mg Q12H PRN [place] CONSTIPATION; Start 01/06/17 at 12: 30 Magnesium Hydroxide (Milk Of Mag) 30 ml BID PRN PO CONSTIPATION; Start at 12:30 Sodium Biphosphate/ Sodium Phosphate (Fleet Enema) 133 ml DAILY PRN [place] CONSTIPATION; Start 01/06/17 at 12:30 Docusate Sodium (Colace) 100 mg BID PO Last administered on 01/09/17 09:19; Admin Dose 100 MG; Start 01/06/17 at 21:00 Diphenhydramine HCl (Benadryl) 25 mg Q6H PRN PO PRURITUS; Start 01/06/17 at 12: 30 Acetaminophen/ Hydrocodone Bitart ([place] (7.5-325)) 1 tab Q4H PRN PO PAIN LEVEL 1-3 Last administered on 01/08/17 15:05; Admin Dose 1 TAB; Start at 12:30 Acetaminophen/ Hydrocodone Bitart ([place] (7.5-325)) 2 tab Q4H PRN PO PAIN LEVEL 4-7 Last administered on 01/09/17 07:22; Admin Dose 2 TAB; Start at 12:30 Aspirin (Ecotrin) 325 mg BID PO Last administered on 01/09/17 09:19; Admin Dose 325 MG; Start 01/07/17 at 09:00 Pantoprazole (Protonix Tab) 40 mg BID@,18 PO Last administered on 01/09/17 05:55; Admin Dose 40 MG; Start 01/06/17 at 18:00 Pregabalin (Lyrica) 50 mg BID PO Last administered on 01/09/17 09:19; Admin Dose 50 MG; Start 01/06/17 at 21:00 Metoclopramide HCl (Reglan) 10 mg Q6H PRN IV NAUSEA Last administered on 22:27; Admin Dose 10 MG; Start 01/06/17 at 22:30 MADELINE DELCID Jan 09, 2017 11:34
[2017-01-09] MEDS ORDERED: ZOF8 PO (11:35)
--- NOTE | 2017-01-09 11:59 | PN ---
Date/Time of Note Date/Time of Note DATE: 01/09/17 TIME: 11:58 Assessment/Plan Lines/Catheters IV Catheter Type (from Nrsg): Saline Lock Armstrong in Place (from Nrsg): No Assessment/Plan Assessment/Plan POD # 3. Stable. -D/C to home -Pain meds -ASA/SCDs -Home PT -F/u with me in 1 week Subjective 24 Hr Interval Summary Feels well. Wants to go home. Exam/Review of Systems Vital Signs Vitals Vital Signs Date Time Temp Pulse Resp B/P Pulse Ox O2 Delivery O2 Flow Rate FiO2 01/09/17 07:48 98.7 76 18 141/65 91 01/06/17 17:30 Venturi Mask 2.0 Intake and Output 01/08/17 01/08/17 01/09/17 15:00 23:00 07:00 Intake Total 800 ml 850 ml Output Total 800 ml Balance 800 ml 50 ml Exam Free Text/Dictation Dressing dry Incision clean, dry, and intact without redness or drainage 5/5 Tibialis Anterior, EHL, Gastroc Soleus, Peroneals Normal sensation Palpable DP/PT, CR < 2 Sec No distal edema Results Result Diagram: 01/09/17 04301/09/17 043 GRIFFIN MCCOY MD Jan 09, 2017 11:59
--- NOTE | 2017-01-10 08:54 | DS ---
Date/Time of Note Date/Time of Note DATE: 01/10/17 TIME: 08:50 Discharge Summary Admission/Discharge Info Admit Date/Time Jan 06, 2017 at 07:36 Discharge Date/Time Jan 09, 2017 at 16:00 Discharge Diagnosis s/p left TKA Patient Condition: Good Procedures Left total knee arthroplasty Hospital Course This is a 61-year-old female, who presented to the clinic initially complaining left knee pain. She had undergone conservative modalities to the left knee unsuccessfully and x-rays demonstrated advanced osteoarthritis of the left knee. It was thought at that point she would benefit from a left total knee arthroplasty. On 01/06/2017, the patient was admitted and taken to the operating room, where she underwent a left total knee arthroplasty. There were no intraoperative complications. The patient tolerated procedure well. She was taken to recovery room in stable condition. Pain was well-controlled oral pain medication. She was started on aspirin and SCDs for DVT prophylaxis. She remained hemodynamically stable neurovascularly intact throughout her hospital stay. She began physical therapy on postoperative day 1 and continued to make satisfactory progress. Ultimately she was deemed stable for discharge on postoperative day 3. Prior to discharge, the incision was inspected and noted to be clean, dry, and intact. Dressing changes were done prior to patient going home. DISCHARGE INSTRUCTIONS: The patient be discharged home in stable condition. She is to resume her normal diet. She is weightbearing as tolerated on left lower extremity. She will begin physical therapy with home health. She was discharged home with a medication noted, and is to resume all of her normal home medication. She is to call the office or go to the emergency room for any concerns including increased redness, swelling, drainage, fever, or any concerns regarding the operation or site of incision. Home Meds Active Scripts Ondansetron Hcl* (Zofran*) 8 Mg Tab, 8 MG PO Q8H Y for NAUSEA AND OR VOMITING, # 60 TAB Prov:MADELINE DELCID 01/09/17 Tramadol HCl (Tramadol HCl) 50 Mg Tablet, 50 MG PO .PRE-OP for 30 Days, #60 TAB Prov:RODNEY ARREOLA PA-C 01/06/17 Pantoprazole* (Pantoprazole*) 40 Mg Tablet.dr, 40 MG PO BID@06,18 for 30 Days, # 60 Prov:RODNEY ARREOLAC 01/06/17 Pregabalin* (Lyrica*) 50 Mg Capsule, 50 MG PO BID for 30 Days, #60 CAP Prov:RODNEY ARREOLA PA-C 01/06/17 Hydrocodone/Acetaminophen (Hydrocodon-Acetaminoph 7.5-325) 1 Each Tablet, 1 TAB PO Q4H Y for PAIN LEVEL 1-3 for 30 Days, #60 TAB Prov:RODNEY ARREOLA PA-C 01/06/17 Aspirin (Aspir-Chantal) 325 Mg Tablet.dr, 325 MG PO BID for 40 Days, #80 Prov:RODNEY ARREOLA PA-C 01/06/17 Discontinued Reported Medications [Glucosamine] No Conflict Check 09/11/15 [Ibuprofen] No Conflict Check, Y for PAIN 09/11/15 Discontinued Scripts Tramadol HCl (Tramadol HCl) 50 Mg Tab, 50 MG PO Q6, #60 TAB Prov:MACHO DHILLON 09/11/15 Oxycodone Hcl* (IR) (Roxicodone*) 5 Mg Tab, 5 MG PO Q4H Y for PAIN LEVEL 1-3, # 60 TAB Prov:MACHO DHILLON 09/11/15 Aspirin* (Ecotrin*) 325 Mg Tabec, 325 MG PO BID, #90 Prov:MACHO DHILLON 09/11/15 Follow-up Plan Follow-up in the office on 01/17/2017 Primary Care Provider Not On Staff Doctor RODNEY ARREOLA PA-C Jan 10, 2017 08:54
== END 2017-01-09 16:00 | disposition home health service (06) | DRG 470 ==
LOC: REC 07:36 → EDSTATUS 09:30 → MS1 17:22
PROVIDERS: ADMIT Orthopaedic Surgery; ATTEND Internal Medicine
PROC: 0SRD0J9 Replacement of Left Knee Joint with Synthetic Substitute, Cemented, Open Approach (ICD-10-PCS; principal; 2017-01-06 10:00)
DX: M17.12 Unilateral primary osteoarthritis, left knee (principal); K21.9 Gastro-esophageal reflux disease without esophagitis; R11.0 Nausea; Z96.651 Presence of right artificial knee joint
CPT/HCPCS: 73560; 80048; 81003; 85014; 85018; 86850; 86900; 86901; 86920; 87081; 87086; 88304; 88311; 97110; 97116; 97162; 97166; 97530; C1776; C9290; J0131; J0171; J0690; J0697; J0735; J1100; J1885; J2250; J2274; J2405; J2710; J2765; J3010; J3370; J7120

== ENCOUNTER → 2017-01-17 | Outpatient (CLI) | payer BC ==
[~2017-01-17] MED LIST changes: -ACETAMINOPHEN 1000 MG/100 ML IVPB ONE; -ASPI-781 PO; +ASPI325T32 PO; -BUPIVACAINE LIPOSOME/PF 266 MG/20 ML VIAL INFIL SCH; -CEFAZOLIN 2GM/50 ML (PMX) 50 ML X1 BEFORE INCISION IVPB SCH; -CELECOXIB 400 MG PO X1 DOSE PO SCH; -ETOMIDATE 20 MG INJ ONE; -EXPAREL NOTE (BUPIVICAINE LIPOSOMAL) XX SCH; -GLUCOSAMINE; +HYDR-3605 PO; -IBUPROFEN; -LACTATED RINGER'S 1,000 ML IV SCH; -ONDANSETRON 4 MG IV X 1 DOSE IV SCH; -OXYC-481 PO; -PAIN COCKTAIL-CEFUROXIME IRR SCH; +PANT40TA4 PO; +PREG50CA PO; -PREGABALIN 300 MG PO X1 PO SCH; -PROPOFOL 1000 MG INJ ONE; -SOD CHLORIDE 0.9% IV SCH; -SOD CHLORIDE 0.9% IVPB SCH; -TRANEXAMIC ACID IV SCH; -TRANEXAMIC ACID IVPB SCH; +ZOF8 PO; -oxyCODONE (CR) 10 MG TAB [oxyCONTIN] X1 DOSE PO SCH; -traMADOL 50 MG TAB X 1 DOSE PO SCH
--- NOTE | 2017-01-17 11:14 | PN ---
Date/Time of Note Date/Time of Note DATE: 01/17/17 TIME: 11:11 Outpatient Progress Note HPI The patient presents today for her first postoperative evaluation on her left knee. She is 10 days status post left total knee arthroplasty. She is doing well overall. She is doing physical therapy with home health. She is taking aspirin twice daily for DVT prophylaxis. She does have some pain that is controlled with the pain medication she was prescribed. She denies any fevers or chills. Presents today for her first postoperative evaluation. Physical Exam On exam today, she is alert and oriented 4, and in no acute distress. Exam of the incision demonstrates it to be clean, dry, and intact. Leroy are in place. Range of motion is 0-95. There is no erythema, warmth, pus, or drainage noted. There is some mild soft tissue swelling but no swelling distally along the lower extremity. Varus and valgus forces are stable. Compartments are soft. She is neurovascularly intact distally. Imaging: X-rays of the left knee were obtained today and reviewed by me. They demonstrate the need to be in good anatomic alignment with no fractures or dislocations identified. Allergies Coded Allergies: aspirin (Verified Adverse Reaction, Unknown, nausea and vomiting, 01/06/17) HX OF GASTRIC BLEEDING 2/2 TO ASPIRIN Assessment/Plan Assessment: 10 days status post left total knee arthroplasty Plan: The leroy were removed today, and Steri-Strips were applied. She is to continue physical therapy with home health and transition to an outpatient physical therapy program. Additionally she is to continue taking aspirin 325 mg twice a day for DVT prophylaxis. We will see her back in 4 weeks for repeat evaluation. She is to call the office in the meantime if she has any concerns. Medications Home Meds Active Scripts Ondansetron Hcl* (Zofran*) 8 Mg Tab, 8 MG PO Q8H Y for NAUSEA AND OR VOMITING, # 60 TAB Prov:MADELINE DELCID 01/09/17 Tramadol HCl (Tramadol HCl) 50 Mg Tablet, 50 MG PO .PRE-OP for 30 Days, #60 TAB Prov:RODNEY ARREOLA PA-C 01/06/17 Pantoprazole* (Pantoprazole*) 40 Mg Tablet.dr, 40 MG PO BID@06,18 for 30 Days, # 60 Prov:RODNEY ARREOLA PA-C 01/06/17 Pregabalin* (Lyrica*) 50 Mg Capsule, 50 MG PO BID for 30 Days, #60 CAP Prov:RODNEY ARREOLA PA-C 01/06/17 Hydrocodone/Acetaminophen (Hydrocodon-Acetaminoph 7.5-325) 1 Each Tablet, 1 TAB PO Q4H Y for PAIN LEVEL 1-3 for 30 Days, #60 TAB Prov:RODNEY ARREOLA PA-C 01/06/17 Aspirin (Aspir-Chantal) 325 Mg Tablet., 325 MG PO BID for 40 Days, #80 Prov:RODNEY ARREOLA PA-C 01/06/17 RODNEY ARREOLA PA-C Jan 17, 2017 11:14
--- NOTE | 2017-01-17 16:22 | RADRPT ---
PROCEDURE: XR Left Knee. CLINICAL INDICATION: Left knee pain. Postop. TECHNIQUE: Two views. Frontal and lateral. COMPARISON: 01/06/2017. FINDINGS: There is no fracture or dislocation. Anterior skin ryan and surgical drain have been removed. There is a large joint effusion. There is a total left knee arthroplasty which appears satisfactory. There is no lytic or blastic lesion. IMPRESSION: 1. Large joint effusion. 2. Otherwise unremarkable postoperative appearance of the left knee. RPTAT: QQ .Pérez Finch MD, MD Date Time Electronically viewed and signed by .Pérez Finch MD, MD on 01/17/2017 16:22 .R/
== END | disposition home or self-care (01) ==
LOC: HKI 10:14
PROVIDERS: ATTEND Orthopaedic Surgery
DX: Z47.1 Aftercare following joint replacement surgery (principal); Z96.652 Presence of left artificial knee joint